=== PATIENT | female | born 1950 | race African-American/Black ===

== ENCOUNTER 2021-11-07 07:16 | Day surgery (SDC) | payer MEDICARE ==
[2021-11-07] MEDS ORDERED: ceFAZolin/Water 2 GM/20 ML 2 GM/20 ML SYRINGE IV ONE (07:34)
[2021-11-07] MEDS ORDERED: LACTATED RINGERS 1,000 ML ONE (07:35)
[2021-11-07] MEDS ORDERED: fentaNYL 100 MCG/2 ML INJ ONE (08:49)
[2021-11-07] MEDS ORDERED: LIDOCAINE MPF (2%) 20 MG/1 ML VIAL 5 ML ONE (08:49)
[2021-11-07] MEDS ORDERED: propofoL 200 MG/20 ML VIAL IV ONE ×2 (08:49→09:25)
[2021-11-07] MEDS ORDERED: LACTATED RINGERS 1,000 ML IV SCH (08:58)
[2021-11-07] MEDS ORDERED: ceFAZolin/STERILE WATER 2 GM/20 ML SYRINGE IV NR (09:00)
--- NOTE | 2021-11-07 09:03 | Anesthesia Day of Surgery ---
Anesthesia Day of Surgery - Day of Surgery Patient Examined: Yes Patient H&P Reviewed: Yes Patient is NPO: Yes
--- NOTE | 2021-11-07 09:03 | Anesthesia Consultation ---
Anesthesia Consult and Med Hx Date of service: 11/07/21 - Airway Anesthetic Teeth Evaluation: Dentures, Edentulous ROM Head & Neck: Adequate Mental/Hyoid Distance: Adequate Mallampati Class: Class II Intubation Access Assessment: Good - Pre-Operative Health Status ASA Pre-Surgery Classification: ASA2 Proposed Anesthetic Plan: MAC (MAC; GA if needed) - Pulmonary Hx Smoking: Yes (1/2 PPD X 50 YRS) Hx Sleep Apnea: No (JASPER PRE SCREEN LOW RISK) - Cardiovascular System Hx Hypertension: No - Central Nervous System Hx Psychiatric Problems: No - Gastrointestinal Hx Gastroesophageal Reflux Disease: No - Hematic Hx Anemia: No - Other Systems Hx Cancer: No Hx Obesity: No
[2021-11-07] MEDS ORDERED: BUPIVACAINE/PF (0.25%) 2.5 MG/ML 10 ML VIAL INFILTRATI ONE ×2 (09:07→09:58)
[2021-11-07] MEDS ORDERED: LIDOCAINE (1%) 10 MG/1 ML VIAL 20 ML MDV ONE (09:08)
[2021-11-07] MEDS ORDERED: GLYCOPYRROLATE 0.4 MG/2 ML INJ ONE (09:25)
[2021-11-07] MEDS ORDERED: KETAMINE/STERILE WATER 50 MG/ML SYRINGE ONE (09:25)
[2021-11-07] MEDS ORDERED: MIDAZOLAM 2 MG/2 ML INJ ONE (09:25)
[2021-11-07] MEDS ORDERED: LIDOCAINE (1%) 10 MG/1 ML VIAL 20 ML MDV INFILTRATI ONE (09:57)
[2021-11-07] MEDS ORDERED: SODIUM CHLORIDE 0.9% IRR 1,500 ML BOTTLE IR ONE (10:00)
--- NOTE | 2021-11-07 10:22 | Short Stay Summary ---
Short Stay Documentation Date of service: 11/07/21 - History Principal diagnosis: right wrist ganglion cyst H&P: obtained from office - Allergies and Medications Current Medications: Allergies aspirin Adverse Reaction (Verified 11/07/21 08:13) Nausea Home Medications Medication Instructions Recorded Confirmed Last Taken Type AtorvaSTATin [Lipitor] 40 mg PO QHS 11/01/21 11/01/21 Unknown History Vitamin E 100 unit PO DAILY 11/01/21 11/01/21 Unknown History Active Medications Lactated Ringer's (Lactated Ringers) 1,000 mls @ 125 mls/hr IV DIRECT RUPERT - Brief post op/procedure progress note Date of procedure: 11/07/21 Pre-op diagnosis: right wrist ganglion cyst Post-op diagnosis: same Procedure: excision right wrist ganglion cyst Anesthesia: MAC, local Findings: 1.5 cm ganglion cyst ulnar aspect of right wrist Surgeon: KUMAR SLOAN Estimated blood loss: minimal Pathology: list (ganglion cyst of right wrist) Specimen disposition: to lab Condition: stable - Hospital course Hospital course: Pt observed in PACU and discharged to home in stable condition - Disposition Condition at discharge: Good Disposition: 01 HOME / SELF CARE / HOMELESS Short Stay Discharge Plan Activity: no restrictions Diet: regular Wound: open to air, per your surgeon's advice Additional Instructions: see printed instructions Follow up with: PRIMARY CAREMD [Primary Care Provider] - 7 Days KUMAR SLOAN DO [Staff Physician] - 14 Days
--- NOTE | 2021-11-07 10:59 | Operative Report ---
Operative Report Operative Report: Date of procedure: 11/07/21 Pre-op diagnosis: right wrist ganglion cyst Post-op diagnosis: same Procedure: excision right wrist ganglion cyst Anesthesia: MAC, local Findings: 1.5 cm ganglion cyst ulnar aspect of right wrist Surgeon: KUMAR SLOAN Estimated blood loss: minimal Pathology: list (ganglion cyst of right wrist) Specimen disposition: to lab Condition: stable Hospital course: Pt observed in PACU and discharged to home in stable condition Condition at discharge: Good Disposition: 01 HOME / SELF CARE / HOMELESS HPI and indication: Patient is a 70-year-old female who was seen in the surgery clinic for evaluation of a cyst of her right wrist. The cyst had grown in size and was causing her discomfort. On exam, the cyst measured approximately 1.5 cm in length consistent with a ganglion cyst. It was recommended that the cyst. Excised. All risks, benefits, alternatives to surgery were discussed and questions answered. Consent was obtained. Procedure in detail: Patient was identified in the preoperative area, taken back to the operating room, placed on the operating room table in supine position. After anesthesia was induced, the right hand and forearm was prepped and draped in usual sterile fashion and a timeout was performed. Local anesthetic, was injected into the skin at the intended incision site. An incision was made in the skin over the cyst using a 15 blade. Dissection was carried down through the skin using electrocautery. The cyst was encountered. It was bluntly dissected from the surrounding structures. The radial artery was adhered to the cyst and was very carefully dissected using blunt dissection. The artery was preserved. The cyst was circumferentially dissected with a combination of blunt dissection with a hemostat and sharp dissection with scissors. The cyst was very tense and the fluid was evacuated in order to better visualize the posterior wall. There was clear gelatinous fluid evacuated. Once the entire cyst was dissected it was removed from the wound and passed off the table as a specimen. The wound was irrigated and hemostasis very carefully ensured. Superficial venous bleeding was controlled using electrocautery. Once hemostasis was ensured the wound was closed in a layered fashion. The deep dermal layer was approximated using 3-0 Vicryl interrupted stitches. The skin was approximated using 4-0 Monocryl subcuticular running stitch and skin glue. Local anesthetic was once again infiltrated into the skin. At the end of the case, all sponge, instrument, sharp counts were correct 2. The patient was awoken from anesthesia and taken to PACU in stable condition.
--- NOTE | 2021-11-07 17:12 | Post Anesthesia Evaluation ---
- Post Anesthesia Evaluation Patient Participated: Yes Airway Patent: Yes Stable Respiratory Function: Yes Nausea/Vomiting: No Temp > 96.8F: Yes Pain Manageable: Yes Adequeate Hydration: Yes Anesthesia Complications: No Block Receding Appropriately: Not Applicable Patient on Ventilator: No
[2021-11-07 19:19] VITALS: BP 152/79
== END 2021-11-07 11:35 | disposition home or self-care (01) ==
LOC: OR 07:16
PROVIDERS: ATTEND Surgery
DX: M67.431 Ganglion, right wrist (principal); Z20.822 Contact with and (suspected) exposure to COVID-19; F17.210 Nicotine dependence, cigarettes, uncomplicated; Z88.8 Allergy status to other drugs, medicaments and biological substances; Z79.899 Other long term (current) drug therapy; Z98.890 Other specified postprocedural states
CPT/HCPCS: 25111; 88304; J0690; J1815; J2250; J2704; J3490; J7120; U0003; J3010